=== PATIENT | male | born 1960 | race Caucasian/White ===

== ENCOUNTER 2021-09-17 16:57 | Emergency (ER) | payer OTHER, SELFPAY ==
[2021-09-17 17:10] VITALS: BP 125/74; PULSE 83; RESP 18; TEMP 36.9; O2SAT 100
--- NOTE | 2021-09-17 17:13 | ED.GENADULT ---
HPI - General Adult General Chief complaint: Urogenital-Male Stated complaint: uti Time Seen by Provider: 09/17/21 17:13 Source: patient Mode of arrival: ambulatory Limitations: no limitations History of Present Illness HPI narrative: 60-year-old male patient presents to the [facility] with complaints pain to the left testicle. Patient states he was seen in [place] where he lives on 09/12 and at that time was diagnosed with a urinary tract infection. Patient showed the urine culture to the nurse practitioner which showed that he was positive for E. coli. Patient was placed on Levaquin and Pyridium. Patient states he is still taking the Levaquin but states that most of his symptoms have resolved but continues to have some left testicular pain which was also some pain that he had when he was first diagnosed with a UTI. Related Data Home Medications Medication Instructions Recorded Confirmed amitriptyline 25 mg PO DIRECTED 09/17/21 09/17/21 atorvastatin 80 mg PO DAILY 09/17/21 09/17/21 bupropion HCl 150 mg PO DAILY 09/17/21 09/17/21 bupropion HCl 300 mg PO DAILY 09/17/21 09/17/21 dextroamphetamine-amphetamine 30 mg PO DIRECTED 09/17/21 09/17/21 [Adderall XR] fluoxetine 40 mg PO DIRECTED 09/17/21 09/17/21 levofloxacin 750 mg PO DIRECTED 09/17/21 09/17/21 levothyroxine 100 mcg PO DIRECTED 09/17/21 09/17/21 lisinopril 5 mg PO DAILY 09/17/21 09/17/21 memantine 10 mg PO DIRECTED 09/17/21 09/17/21 propranolol 60 mg PO DIRECTED 09/17/21 09/17/21 ropinirole 3 mg PO DIRECTED 09/17/21 09/17/21 Allergies Allergy/AdvReac Type Severity Reaction Status Date / Time No Known Allergies Allergy Verified 09/17/21 17:32 Review of Systems Review of Systems: CONSTITUTIONAL: Denies fever, chills, or sweats. EYES: Denies visual changes, redness, or discharge. ENT: Denies rhinorrhea, congestion, sore throat, or otalgia. CARDIOVASCULAR: Denies chest pain, palpitations, or edema. RESPIRATORY: Denies cough or dyspnea. GASTROINTESTINAL: Denies abdominal pain, nausea, vomiting, or diarrhea. GENITOURINARY: Denies dysuria or hematuria. Positive left testicular pain SKIN: Denies rash or itching. MUSCULOSKELETAL: Denies back pain, joint pain, or myalgia. NEUROLOGIC: Denies headache, numbness, or weakness. PSYCHIATRIC: Denies anxiety or depression. PMFSH Comments At the time of my signature I agree with nursing past medical history, surgical, social, and family history. There is no relevant family history pertinent to the presenting complaint. Exam Narrative: GENERAL: Well-appearing, well-nourished, and in no acute distress. HEAD: Normocephalic, atraumatic. EYES: PERRLA and EOMI. ENT: Nares clear, no rhinorrhea or epistaxis. Mucous membranes moist. NECK: Supple. No lymphadenopathy CHEST: Clear to auscultation. No respiratory distress. HEART: Regular rate and rhythm. No murmur heard. Normal peripheral pulses. ABDOMEN: Soft, nontender, nondistended, normal active bowel sounds. : Normal external genitalia, circumcised male. No lesions or rash present. Urinary meat us clear. Foreskin retracts easily. Patient does have slight erythema noted to the left testicle but there is no warmth present. There is some sensitivity to the touch along with pain noted to the proximal side of the left testicle there is no obvious fluid-filled sacs or abscesses noted at this time. EXTREMITIES: Normal range of motion. No edema. SKIN: Warm, dry, no rash. NEURO: No focal deficits. Alert and oriented x3. Course Vital Signs Vital signs: Vital signs reviewed Medical Decision Making Differential Diagnosis Differential Diagnosis: Differential diagnosis: Uncomplicated lower UTI, uncomplicated UTI, polynephritis, penile trauma,balanoposthitis, phimosis, paraphimosis, testicular torsion, epididymitis, prostatitis, varicocele, spermatocele, hydrocele, hernia. Discussed with patient I think this is most likely epididymitis that is causing the testicul
== END 2021-09-17 17:58 | disposition home or self-care (01) ==
PROVIDERS: Emergency Provider Nurse Practitioner Family
DX: N45.1 Epididymitis (principal); E78.00 Pure hypercholesterolemia, unspecified; I10 Essential (primary) hypertension; K21.9 Gastro-esophageal reflux disease without esophagitis; E03.9 Hypothyroidism, unspecified; F41.9 Anxiety disorder, unspecified; F90.9 Attention-deficit hyperactivity disorder, unspecified type
CPT/HCPCS: 99202; G0463